=== PATIENT | female | born 1990 | race Caucasian/White ===

== ENCOUNTER 2016-09-10 14:22 | Inpatient (IN) | payer OTHER ==
[~2016-09-10] VITALS: Ht 160 cm; Wt 70.3 kg
[2016-09-10 16:26] LABS: ABSOLUTE BASOPHIL COUNT 0.1 /CUMM (0.0-0.2); ABSOLUTE EOSINOPHIL COUNT 0.1 /CUMM (0.0-0.7); ABSOLUTE GRANULOCYTE CT 12.7 /CUMM (1.4-6.5); ABSOLUTE LYMPH COUNT 1.9 /CUMM (1.2-3.4); ABSOLUTE MONOCYTE COUNT 0.9 /CUMM (0.10-0.60); BASOPHIL % 0.4 % (0.0-2.0); EOSINOPHIL % 0.5 % (0-5); HEMATOCRIT 30.7 % (37-47); MEAN CORPUSCULAR HGB 21.5 PG (27.0-31.0); MEAN CORPUSCULAR HGB CONC 31.6 G/DL (33.0-37.0); MEAN CORPUSCULAR VOLUME 68.1 FL (81.0-99.0); PLATELET COUNT 324 /CUMM (130-400); RBC DISTRIBUTION WIDTH 17.9 % (11.5-14.5); RED BLOOD CELL CT 4.51 /CUMM (4.20-5.40); WHITE BLOOD CELL COUNT 15.6 /CUMM (4.8-10.8)
--- NOTE | 2016-09-10 19:06 | History & Physical ---
General Information and HPI MD Statement: I have seen and personally examined JOSE D CARBAJAL and documented this H&P. The patient is a 25 year old female at [38] weeks and [2] days gestation who presented with a chief complaint of [SROM]. Source of Information: patient Exam Limitations: no limitations History of Present Illness: 25 year old @ 38+2 weeks with SROM. remarkable for 1. A1GDM 2. unknown GBS. obtained yesterday but result still pending 3. 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 History : 1 Para: 0 Last Menstrual Period: 6.7.16 Estimated Delivery Date: 17 Past net finisher History: none Medical History Blood Transfusion Hx: No Neurological: NONE EENT: NONE Cardiovascular: NONE Respiratory: NONE Gastrointestinal: NONE Hepatic: NONE Renal: NONE Musculoskeletal: NONE Psychiatric: NONE Endocrine: NONE Blood Disorders: anemia, physiologic anemia of Cancer(s): NONE 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 EENTM: Reports: no symptoms. Cardiovascular: Reports: no symptoms. Respiratory: Reports: no symptoms. GI: Reports: no symptoms. Genitourinary: Reports: see HPI. Musculoskeletal: Reports: no symptoms. Skin: Reports: no symptoms. Neurological/Psychological: Reports: no symptoms. Hematologic/Endocrine: Reports: no symptoms. Immunologic/Allergic: Reports: no symptoms. Exam & Diagnostic Data Last 24 Hrs of Vital Signs/I&O Intake & Output / 1600 03/02 0800 03/ 0000 Intake Total Output Total Balance Patient 155 lb Weight Obstetric Exam Wgt Gained During : 45 Pelvimetry: appears adequate Dilation (cm): 5 Effacement (%): 90 Station: 0 Membranes: SROM Fluid: clear Fundal Height (cm): 38 Multiple Gestation? No Contractions: 23-4 Patient for Induction? No Labs Blood Type & Rh: B pos Antibody Screen: neg Hct/Hgb & Platelets #1: 12.7 37 261 Hct/Hgb & Platelets #2: 9.2 30.3 335 Rubella: IMM VDRL #1: NEG VDRL #2: NEG HbsAg: NEG HIV #1: NEG HIV #2 NEG 1 Hr P 3 Hr P 179 158 122 Group B Strep: UNKNOWN Initial Ultrasound: 9.3 Anatomy Ultrasound: 20.6, XY, ANT PLAC Ultrasound for EFW: 39% @34W Genetic Testing: NEG MAT21, NEG AFP Last 24 Hrs of Labs/Gerardo: Laboratory Tests 09/10/16 1605: Hemoglobin A1c Pending, CBC w Diff NO MAN DIFF REQ, RBC 4.51, MCV 68.1 L, MCH 21.5 L, RDW 17.9 H, MPV 8.0, Gran % 81.0 H, Lymphocytes % 12.1 L, Monocytes % 6.0, Eosinophils % 0.5, Basophils % 0.4, Absolute Granulocytes 12.7 H, Absolute Lymphocytes 1.9, Absolute Monocytes 0.9 H, Absolute Eosinophils 0.1, Absolute Basophils 0.1, PUBS MCHC 31.6 L 09/10/16 1600: Urine Color YEL, Urine Clarity HAZY H, Urine pH 7.0, Ur Specific [place] 1.020, Urine Protein TRACE H, Urine Ketones NEG, Urine Nitrite NEG, Urine Bilirubin NEG, Urine Urobilinogen 1.0, Ur Leukocyte Esterase NEG, Ur Microscopic SEDIMENT EXAMINED, Urine RBC 15-25 H, Ur Epithelial Cells MOD H, Urine Bacteria MANY H , Urine Hemoglobin MOD H, Urine Glucose NEG Assessment/Plan Assessment/Plan: 25 YEAR OLD @38+2. 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 SROM. FHR TRACING REASSURING. ANTICIPATE . PLAN ROUTINE CARE. EPIDURAL/PITOCIN PRN. WILL HAVE ANESTHESIA DISCUSS RISKS /BENEFITS/ALT OF PROCEDURE. 1. UNKNOWN GBS. ANTICIPATE RESULTS IN AM. WILL COVER WITH GBS PROPHYLAXIS 2.A1GDM. HGB A1C ORDERED 3.CODEINE ALL , ADHESIVE ALL As Ranked By This Provider Problem List: 1. Core Measures/Miscellaneous [place] Catheter Date In: 09/10/16 Still Needed? No Venous Thromboembolism VTE Risk Factors: / VTE Contraindications: No Contraindications VTE Diagnosis: No Beta Benny Is Beta Benny a Home Med? No Antibiotics Is Patient on Antibiotics? No Attending MD Review Statement Attending Statement Attending MD Statement: examined this patient, discussed w/nursing
--- NOTE | 2016-09-11 00:32 | Labor & Delivery Summary ---
Delivery Summary Vaginal Delivery: Vaginal: vertex Episiotomy/Lacerations: Episiotomy/Lacerations: none Placenta: Placenta: spontanteous, normal, 3 vessel, nuchal cord (x_) (TRUE KNOT X 1, SENT FOR PATH) Anesthesia: block Baby's Weight: PENDING Apgars - 1 Min: 9 Apgars - 5 Min: 9 Additional Comments: PT PROGRESSED TO FULLY DILATED, LABORED DOWN. PUSHED X 15 MINUTES AND DELIVERED HEAD ATRAUMATICALLY. SHOULDERS AND BODY DELIVERED WITHOUT DIFFICULTY. BULB SUCTIONED, DRIED AND STIMULATED. DELAYED CORD CLAMPING. PLACED ON MATERNAL ABDOMEN. NO LACERATIONS NOTED. PLACENTA DELIVERED INTACT. TRUE KNOT NOTED FOR WHICH PLACENTA SENT FOR PATH.
[2016-09-11 01:48] VITALS: BP 126/77
--- NOTE | 2016-09-12 08:07 | PN- Post Delivery/GYN ---
Subjective Subjective: feeling well Review of Systems Constitutional: Reports: no symptoms. Denies: chills, fever. EENTM: Denies: blurred vision, double vision, visual changes. Cardiovascular: Denies: chest pain. Respiratory: Denies: cough. Neurological/Psychological: Denies: anxiety, depressed. Objective Last 24 Hrs of Vital Signs/I&O vss Physical Exam General Appearance Alert, Oriented X3, Cooperative, No Acute Distress Cardiovascular Regular Rate Abdomen Soft Extremities No Edema Breasts Breast appear nl Pelvic (FEMALE) lochia serosanganous Current Medications: Current Medications Sig/Merlin Start time Last Medication Dose Route Stop Time Status Admin Acetaminophen 650 MG Q4P PRN 09/11 0030 AC PO Butorphanol Tartrate 1 MG Q4P PRN 09/10 1630 AC IV Butorphanol Tartrate 1 MG Q4P PRN 09/10 1630 AC IM Docusate Sodium 100 MG BID PRN 09/11 0030 AC PO Hydroxyzine HCl 50 MG AT BEDTIME NEED.. 09/11 0030 AC PO Ibuprofen 800 MG Q6P PRN 09/11 0030 AC 09/12 PO 0413 Lactated Ringer's 1,000 ML Q8H 09/10 1515 AC 09/10 IV 2258 Magnesium Hydroxide 30 ML DAILY PRN 09/11 0030 DC PO 09/11 1001 Oxycodone/ 1 TAB Q3P PRN 09/11 0030 AC Acetaminophen PO Penicillin G 2.5 MU Q4H 09/10 1630 DC 09/10 Potassium IV 2014 Dextrose/Water 100 ML Senna 374 MG AT BEDTIME NEED.. 09/11 0030 DC PO 09/12 0031 Last 24 Hrs of Labs/Gerardo: [facility] Laboratory Tests 09/12/16 0645: CBC w Diff Pending, WBC Pending, RBC Pending, Hgb Pending, Hct Pending, MCV Pending, MCH Pending, RDW Pending, Plt Count Pending, MPV Pending, PUBS MCHC Pending Assessment/Plan Assessment/Plan ppd #1 vss afebrile/ plan pt requesting early discharge Problem List: 1. Attending MD Review Statement Attending Statement Attending MD Statement: examined this patient, discussed with family, discussed with nursing
[2016-09-12 08:35] LABS: ABSOLUTE BASOPHIL COUNT 0 /CUMM (0.0-0.2); ABSOLUTE EOSINOPHIL COUNT 0.3 /CUMM (0.0-0.7); ABSOLUTE LYMPH COUNT 2.4 /CUMM (1.2-3.4); ABSOLUTE MONOCYTE COUNT 0.9 /CUMM (0.10-0.60); BASOPHIL % 0.2 % (0.0-2.0); EOSINOPHIL % 1.7 % (0-5); GRANULOCYTE % 77.1 % (42.2-75.2); HEMATOCRIT 29.1 % (37-47); MEAN CORPUSCULAR HGB 21.8 PG (27.0-31.0); MEAN CORPUSCULAR HGB CONC 31.9 G/DL (33.0-37.0); MEAN CORPUSCULAR VOLUME 68.4 FL (81.0-99.0); MEAN PLATELET VOLUME 8.3 FL (7.4-10.4); PLATELET COUNT 285 /CUMM (130-400); RBC DISTRIBUTION WIDTH 18.5 % (11.5-14.5); RED BLOOD CELL CT 4.25 /CUMM (4.20-5.40); WHITE BLOOD CELL COUNT 15.6 /CUMM (4.8-10.8)
[2016-09-13] MEDS ORDERED: IBUPROFEN800 M1 PO (08:48)
== END 2016-09-13 11:25 | DRG 775 ==
LOC: CBCO 14:22 → GNO 14:59 → CBCO 09-22 08:00
PROVIDERS: ADMIT Obstetrics & Gynecology
PROC: 10E0XZZ Delivery of Products of Conception, External Approach (ICD-10-PCS; principal; 2016-09-11)
DX: O69.2XX0 Labor and delivery complicated by other cord entanglement, with compression, not applicable or unspecified (principal); O24.429 Gestational diabetes mellitus in childbirth, unspecified control; Z3A.38 38 weeks gestation of pregnancy; Z37.0 Single live birth
CPT/HCPCS: GNOP; GNOS; 36415; 81001; 84112; 87086; 88307; J7120